=== PATIENT | female | born 1970 | race Caucasian/White ===

== ENCOUNTER → 2020-10-26 15:10 | Outpatient (CLI) | payer SELFPAY ==
--- NOTE | 2020-10-26 15:18 | ECHOD_ITS ---
Reason For Study: PALPITATIONS Procedure This was a 2D Doppler, Color Flow transthoracic echocardiogram. Exam performed in department. Left Ventricle Normal LV size. The estimated ejection fraction is 55 %. Normal diastology for age. No regional wall motion abnormalities noted. Right Ventricle Normal RV size. Normal systolic function. Atria Normal left atrium. Normal right atrium. No doppler evidence for ASD. Mitral Valve There is no mitral valve stenosis. No mitral valve insufficiency. Tricuspid Valve There is no tricuspid stenosis. Unable to estimate RV systolic pressure due to inadequate jet, pulmonary artery pressure probably normal. Aortic Valve Trisinus/trileaflet aortic valve. There is no aortic stenosis. No aortic valve insufficiency. Pulmonic Valve There is no pulmonic valvular stenosis. No pulmonic valve insufficiency. Great Vessels Normal aortic root. Pericardium/Pleural No pericardial effusion. MMode/2D Measurements & Calculations LVIDd: 5.4 cm IVSd: 1.1 cm Ao root diam: 2.9 cm LVIDs: 3.0 cm LVPWd: 1.1 cm RVDd: 3.1 cm FS: 43.3 % LAV(MOD-bp): 56.7 ml LA A4 area: 19.0 cm2 LA dimension(2D): 4.0 cm LAV(MOD-bp) Indexed: 27.3 ml/m2 LAV(MOD-sp2): 51.2 ml LAV(MOD-sp4): 57.5 ml RA A4 area: 16.6 cm2 Time Measurements MV dec time: 0.19 sec Doppler Measurements & Calculations MV E max andres: 82.3 cm/sec Lat Peak E' Andres: 11.4 cm/sec Med Peak E' Andres: 11.2 cm/sec MV A max andres: 68.4 cm/sec E/E' lat: 7.2 E/E' med: 7.4 MV E/A: 1.2 Ao V2 max: 136.0 cm/sec LV V1 max: 98.1 cm/sec PA V2 max: 84.3 cm/sec Ao max P.4 mmHg LV V1 max P.9 mmHg TR max andres: 235.3 cm/sec TR max P.2 mmHg ECHO/Echo Complete Interpretation Summary The estimated ejection fraction is 55 %. Normal diastology for age. Ordering Physician: HANH HORN Referring Physician: Bakari Russo Performed By: Ashlee Maradiaga RDCS, RVT
== END ==
PROVIDERS: PCP Family Medicine
DX: R00.2 Palpitations (principal); I49.1 Atrial premature depolarization
CPT/HCPCS: 93306

== ENCOUNTER 2020-12-16 23:16 | Emergency (ER) | payer OTHER, SELFPAY ==
[2020-12-16 23:16] VITALS: BP 155/92; PULSE 99; RESP 18; TEMP 36.9; O2SAT 95; BMI 37.8
[2020-12-16 23:19] VITALS: BP 155/92; PULSE 99; RESP 18; TEMP 36.9; O2SAT 95
[2020-12-17 00:16] LABS: Absolute Lymphocyte Count 0.94 X10^3/uL (0.83-4.51); Absolute Neutrophil Count 2.1 X10^3/uL (2.0-7.7); Basophil# 0.02 X10^3/uL; Basophil% 0.6 % (0-1); Eosinophil# 0.06 X10^3/uL; Eosinophils% 1.7 % (0-5); Hematocrit 37.6 % (37-47); Hemoglobin 12.5 g/dL (12.0-15.0); Lymphocyte # 0.94 X10^3/ul (0.83-4.51); Mean Corp Hgb Conc 33.2 g/dL (32-36); Mean Corpuscular Hgb 28.4 pg (27.0-32.0); Mean Corpuscular Volume 85.5 fL (81-99); Monocyte# 0.36 X10^3/uL; Monocyte% 10.3 % (0-10); NRBC Flagged by Analyzer 0 % (0-5); Neutrophil # 2.09 X10^3/uL (2.7-7.7); Neutrophil % 60.1 % (47-70); Platelet Count 170 K/mm3 (150-450); RBC Distribution Width CV 12.7 % (11.6-14.6); RBC Distribution Width SD 39.7 fl (35.1-43.9); White Blood Count 3.5 K/mm3 (4.4-11.0)
--- NOTE | 2020-12-17 00:25 | EDS_ITS ---
HPI HPI - URI History of Present Illness Chief Complaint: Cough Informant: patient Onset/Context/Timing Onset: Days (5) Context: Gradual Onset Timing: Continuous Quality: Productive of occasional yellow sputum Location: Chest Worsened by: - (Laying down) Relieved by: - (Nothing) Associated Symptoms Associated Symptoms: Positive for Nasal Congestion, Headache, Diarrhea, Chest Pain and Productive Cough; Negative for Sinus Pressure, Myalgias, Nausea, Vomiting, Shortness of Breath, Nonproductive cough and Hemoptysis Narrative Narrative: Patient presents with a cough that has been persistent over the past 5 days. Patient states that she occasionally coughs up some yellow sputum. Patient states her cough is worse when she lays flat. Patient admits to some nasal congestion and rhinorrhea. Patient also admits to mild headache. Patient states she has some pain in her right chest but denies any pain over the left side of her chest. Patient denies any shortness of breath. Patient denies any nausea or vomiting. Patient admits to some mild diarrhea. Patient admits to subjective chills but denies any fevers. ROS ROS ED Constitutional Constitutional ED: Reports chills and subjective; Denies fever(s) Eyes Eyes: Denies blurry vision or change in vision ENT ENT ED: Reports rhinorrhea; Denies sore throat Cardiovascular Cardiovascular: Reports chest pain and palpitations Respiratory/Chest Respiratory/Chest: Reports cough; Denies dyspnea Gastrointestinal Gastrointestinal: Reports diarrhea; Denies nausea or vomiting Genitourinary Genitourinary ED: Denies dysuria or hematuria Musculoskeletal Musculoskeletal: Denies back pain or neck pain Integumentary Denies abscess or rash Neurologic Neurologic: Reports headache(s); Denies weakness Allergic/Immunologic Allergic/Immunologic ED: Denies mouth swelling or urticaria PFSH PFSH no medical history Allergy/AdvReac Type Severity Reaction Status Date / Time Sulfa (Sulfonamide Allergy Shortness Verified 12/16/20 23:18 Antibiotics) of breath Surgical History (Updated 12/17/20 @ 00:[address] Robby Bartholomew DO) History of hysterectomy Social History Smoking Status: Never smoker EXAM Physical Exam Const Vital Signs: 12/16/20 23:16 12/16/20 23:19 12/16/20 23:50 Temperature 98.5 F 98.5 F Temperature Source Temporal Temporal Pulse Rate 99 99 Respiratory Rate 18 18 Respiratory Effort Normal Non-Labored Respiratory Depth Normal Respiratory Pattern Normal Blood Pressure 155/92 H 155/92 H Blood Pressure Mean 113 113 Pulse Ox 95 95 Oxygen Delivery Method Room Air Room Air Room Air Positive well nourished and well developed General Appearance ED: well developed HEENT Reports moist mucous membranes Neck supple and no JVD Resp normal respiratory effort and clear to auscultation bilaterally Cardio regular rate, regular rhythm and no murmurs Rate: regular rate Rhythm: regular rhythm GI normal to inspection, nondistended, normoactive bowel sounds, non-tender and non-distended Auscultation: normoactive bowel sounds Palpation: soft Extremity normal to inspection General Extremety ED: Negative for edema or tenderness General Extremity: Negative for edema Neuro oriented x3, CN's II-XII intact bilaterally and no sensory deficits noted Sensorium / Orientation: alert Motor Exam: strength 5/5 throughout Psych mental status grossly normal Skin no rashes or lesions noted MDM MDM MDM Narrative Medical decision making narrative: Patient was given 2 puffs of an albuterol inhaler here. CBC and basic metabolic profile were within normal limits. Portable 1 view chest x-ray was obtained. On my interpretation, lung castano are clear. There is normal cardiac silhouette. Bony thorax is normal. There is no acute process noted. Radiologist also interpreted the x-ray and agrees. COVID- 19 rapid antigen was obtained and was negative. Patient was feeling better on reevaluation. Patient was instructed to use the inhaler every 4-6 hours as needed for cough or shortness of breath. Patient was instructed to follow-up with her primary care physician in 3 to 5 days. Patient and family understood and were agreeable with the plan. All questions were answered. Lab Data Attestation: I reviewed the patient's lab results. Labs: Laboratory Results - last 24 hr 12/17/20 12/17/20 00:05 00:05 WBC 3.5 L RBC 4.40 Hgb 12.5 Hct 37.6 MCV 85.5 MCH 28.4 MCHC 33.2 RDW Std Deviation 39.7 RDW Coeff of [place] 12.7 Plt Count 170 MPV 8.0 Immature Gran % (Auto) 0.300 Neut % (Auto) 60.1 Lymph % (Auto) 27.0 [place] % (Auto) 10.3 H Eos % (Auto) 1.7 Baso % (Auto) 0.6 Absolute Neuts (auto) 2.1 Absolute Lymphs (auto) 0.94 Nucleated RBC % 0 Sodium 140 Potassium 3.2 L Chloride 105 Carbon Dioxide 30.0 Anion Gap 5 BUN 12 Creatinine 0.63 Estim Creat Clear Calc 93.28 Est GFR (MDRD) Af Amer 128 Est GFR (MDRD) Non-Af 106 BUN/Creatinine Ratio 19.0 Glucose 100 Calcium 8.9 Radiography Diagnostic Testing: Radiology Impression Chest X-Ray 12/17/20 00:30 IMPRESSION: Normal x-ray examination of the chest. Electronically Signed: Patricia Archer MD at 1:39 EDT Tel , Service support , Discharge Plan Triage Chief Complaint: Cough ED Provider: Robby Bartholomew Dx/Rx/DC Orders Clinical Impression: Acute viral bronchitis Instructions: ED Bronchitis, No Antibiotic (Adult) Primary Care Provider: Bakari Russo Referrals: Bakari Russo DO [Primary Care Provider] - 3-5 Days Disposition Disposition: Home, Self Care
--- NOTE | 2020-12-17 00:30 | RAD_ITS ---
STUDY: X-RAY CHEST REASON FOR EXAM: Female, 50 years old. Cough TECHNIQUE: Single AP portable view of the chest. COMPARISON: None. FINDINGS: The lungs are clear and expanded. There is no demonstrated pleural abnormality. Normal size heart. Normal mediastinum and maryjane. Normal visualized pulmonary arteries. Normal visualized aortic arch and descending thoracic aorta. Normal visualized thoracic spine. Normal visualized ribs, clavicles, and shoulders. There is no demonstrated abnormality of the visualized soft tissue structures of the upper abdomen. RAD/Chest 1 View (Portable) IMPRESSION: Normal x-ray examination of the chest. Electronically Signed: Patricia Archer MD at 1:39 EDT Tel , Service support ,
[2020-12-17 00:33] LABS: Anion Gap 5 (5-15); BUN 12 mg/dL (7-18); Calcium,Total 8.9 mg/dL (8.5-10.1); Chloride 105 mmol/L (98-107); Creatinine, Serum 0.63 mg/dL (0.55-1.02); EST Glomerular Filtration Rate 106 mL/min (>60); Est Glom Filt Rate - Afr Amer 128 mL/min (>60); Estimated Creatinine Clearance 93.28 ml/min; Glucose 100 mg/dL (74-106); Potassium 3.2 mmol/L (3.5-5.1); Sodium Level 140 mmol/L (136-145)
[2020-12-17 02:22] VITALS: RESP 16
== END 2020-12-17 02:22 | disposition home or self-care (01) ==
PROVIDERS: Emergency Provider Emergency Medicine; PCP Family Medicine
DX: J20.8 Acute bronchitis due to other specified organisms (principal)
CPT/HCPCS: 36415; 71045; 80048; 85025; 87426; 99282